=== PATIENT | male | born 1955 | race African-American/Black ===

== ENCOUNTER 2017-08-13 23:13 | Emergency (ER) | payer OTHER | END 2017-08-14 00:47 | disposition home or self-care (01) | LOC: D.ER 23:13 | DX: S39.011A Strain of muscle, fascia and tendon of abdomen, initial encounter (principal); X58.XXXA Exposure to other specified factors, initial encounter; Y93.89 Activity, other specified; Y92.89 Other specified places as the place of occurrence of the external cause; I10 Essential (primary) hypertension ==